=== PATIENT | female | born 1935 | race Caucasian/White ===

== ENCOUNTER 2016-11-07 11:38 | Inpatient (IN) | payer OTHER ==
[~2016-11-07] VITALS: Ht 162.6 cm; Wt 77.0 kg
[~2016-11-07 11:38] MED LIST: LORAZEPAM 1MG TABLETS
[2016-11-07 12:50] LABS: Basophils # (auto) 0 uL; Basophils % (auto) 0.4 % (0.0-2.0); Eosinophils # (auto) 0.1 uL; Eosinophils % (auto) 0.7 % (0.0-7.0); Hematocrit 42.8 % (36.0-46.0); Hemoglobin 13.9 g/dL (12.2-16.2); Lymphocytes # (auto) 1.2 uL; Lymphocytes % (auto) 11.9 % (10.0-50.0); Mean Corpuscular Hemoglobin 27.7 pg (28.0-32.0); Mean Corpuscular Hgb Conc. 32.6 g/dL (32.0-36.0); Mean Platelet Volume 7.1 fL (7.4-10.4); Monocytes # (auto) 0.8 uL; Monocytes % (auto) 7.7 % (0.0-12.0); Neutrophils # (auto) 8.3 uL; Neutrophils % (auto) 79.3 % (37.0-80.0); Platelet Count (auto) 350 10^3/uL (140-450); Red Cell Distribution Width 13.6 % (11.6-16.0); White Blood Cell 10.5 10^3/uL (4.4-10.8)
[2016-11-07 13:12] LABS: Albumin 3.8 g/dL (3.4-5.0); BUN/Creatinine Ratio 20.3; Bilirubin, Total 0.5 mg/dL (0.2-1.0); Calcium 9.2 mg/dL (8.5-10.1); Potassium 3.9 mmol/L (3.5-5.1); Total Protein 7.8 g/dL (6.4-8.2)
[2016-11-07] MEDS ORDERED: VANCOMYCIN 1GM/250ML D5W 250 ML IV ONE (17:00)
[2016-11-07] MEDS ORDERED: LORazepam 2MG/ML-1ML VIAL IV ONE (17:00)
[2016-11-07] MEDS ORDERED: SODIUM CHLORIDE 0.9% 1,000 ML IV ONE (17:00)
[2016-11-07] MEDS ORDERED: KETOROLAC TROMETH 30 MG/ML 1ML VIAL IV ONE (17:00)
[2016-11-07] MEDS ORDERED: PIPERACILLIN-TAZOB 3.375GM 100 ML IV ONE (17:00)
[2016-11-07] MEDS ORDERED: VANCOMYCIN PER PHARMACY 0 MG IV SCH (19:45)
[2016-11-07] MEDS ORDERED: PANTOPRAZOLE SODIUM 40 MG/10 ML VIAL IV ONE (20:15)
[2016-11-07 20:59] VITALS: BP 131/75
[2016-11-07 23:00] VITALS: BP 131/75
[2016-11-07] MEDS: ENOXAPARIN SOD 40 MG/0.4 ML SYRINGE SC SCH (23:04)
[2016-11-07] MEDS: SODIUM CHLORIDE 0.9% 1,000 ML IV SCH (23:04)
[2016-11-08] MEDS ORDERED: PIPERACILLIN-TAZOB 3.375GM 100 ML IV ONE (01:00)
[2016-11-08] MEDS: LORazepam 2MG/ML-1ML VIAL IV PRN ×3 (01:46→23:28)
[2016-11-08] MEDS: SODIUM CHLORIDE 0.9% 1,000 ML IV SCH ×3 (03:35→20:45)
[2016-11-08 05:33] VITALS: BP 124/72
[2016-11-08 06:25] LABS: BUN/Creatinine Ratio 28.8; Calcium 8.2 mg/dL (8.5-10.1); Potassium 3.9 mmol/L (3.5-5.1)
[2016-11-08 06:28] LABS: Bilirubin, Total 0.6 mg/dL (0.2-1.0); Total Protein 6.6 g/dL (6.4-8.2)
[2016-11-08 06:31] LABS: Basophils # (auto) 0 uL; Basophils % (auto) 0.5 % (0.0-2.0); Eosinophils # (auto) 0.2 uL; Eosinophils % (auto) 2.8 % (0.0-7.0); Hematocrit 38.6 % (36.0-46.0); Hemoglobin 12.5 g/dL (12.2-16.2); Lymphocytes # (auto) 1.3 uL; Lymphocytes % (auto) 17.1 % (10.0-50.0); Mean Corpuscular Hemoglobin 27.7 pg (28.0-32.0); Mean Corpuscular Hgb Conc. 32.5 g/dL (32.0-36.0); Mean Corpuscular Volume 85.2 fL (80.0-100.0); Mean Platelet Volume 7.5 fL (7.4-10.4); Monocytes # (auto) 0.8 uL; Monocytes % (auto) 10.9 % (0.0-12.0); Neutrophils # (auto) 5.2 uL; Neutrophils % (auto) 68.7 % (37.0-80.0); Platelet Count (auto) 298 10^3/uL (140-450); Red Cell Distribution Width 13.4 % (11.6-16.0); White Blood Cell 7.6 10^3/uL (4.4-10.8)
[2016-11-08 09:00] VITALS: BP 138/85
[2016-11-08] MEDS: PANTOPRAZOLE SODIUM 40 MG/10 ML VIAL IV SCH (10:45)
[2016-11-08] MEDS ORDERED: cefTRIAXone 1GM/50ML D5W 50 ML IV ONE (12:15)
[2016-11-08] MEDS: THROAT LOZENGES(CEPASTAT) MT PRN ×3 (12:41→20:48)
[2016-11-08 13:00] VITALS: BP 149/72
[2016-11-08] MEDS: PSYLLIUM PWD 6 GM PKG PO SCH ×2 (13:57→21:45)
[2016-11-08] MEDS: KETOROLAC TROMETH 30 MG/ML 1ML VIAL IV PRN (16:52)
[2016-11-08] MEDS: VANCOMYCIN 1GM/250ML D5W 250 ML IV SCH (16:58)
[2016-11-08 17:00] VITALS: BP 138/68
[2016-11-08] MEDS: BOOST PLUS 8 ounce PO SCH (18:00)
[2016-11-08] MEDS: ENOXAPARIN SOD 40 MG/0.4 ML SYRINGE SC SCH (20:45)
[2016-11-08 22:00] VITALS: BP 131/71
[2016-11-09] MEDS: THROAT LOZENGES(CEPASTAT) MT PRN ×2 (04:18)
[2016-11-09] MEDS: SODIUM CHLORIDE 0.9% 1,000 ML IV SCH ×3 (04:19→20:25)
[2016-11-09 05:00] VITALS: BP 151/77
[2016-11-09 05:51] LABS: Basophils # (auto) 0 uL; Basophils % (auto) 0.6 % (0.0-2.0); Eosinophils # (auto) 0.3 uL; Eosinophils % (auto) 4.7 % (0.0-7.0); Hematocrit 35.1 % (36.0-46.0); Hemoglobin 11.6 g/dL (12.2-16.2); Lymphocytes # (auto) 1.3 uL; Lymphocytes % (auto) 19.1 % (10.0-50.0); Mean Corpuscular Hemoglobin 28.1 pg (28.0-32.0); Mean Corpuscular Volume 85.2 fL (80.0-100.0); Mean Platelet Volume 7.2 fL (7.4-10.4); Monocytes # (auto) 0.7 uL; Neutrophils # (auto) 4.3 uL; Neutrophils % (auto) 64.6 % (37.0-80.0); Platelet Count (auto) 271 10^3/uL (140-450); Red Cell Distribution Width 13.3 % (11.6-16.0); White Blood Cell 6.7 10^3/uL (4.4-10.8)
[2016-11-09 06:13] LABS: Potassium 3.9 mmol/L (3.5-5.1)
[2016-11-09 06:20] LABS: Albumin 2.7 g/dL (3.4-5.0); BUN/Creatinine Ratio 27.7; Calcium 7.9 mg/dL (8.5-10.1)
[2016-11-09 06:23] LABS: Bilirubin, Total 0.2 mg/dL (0.2-1.0); Total Protein 5.9 g/dL (6.4-8.2)
[2016-11-09] MEDS: LORazepam 2MG/ML-1ML VIAL IV PRN (06:58)
[2016-11-09] MEDS: cefTRIAXone 1GM/50ML D5W 50 ML IV SCH (08:43)
[2016-11-09] MEDS: BOOST PLUS 8 ounce PO SCH ×3 (08:44→18:00)
[2016-11-09 09:00] VITALS: BP 150/89
[2016-11-09] MEDS: PSYLLIUM PWD 6 GM PKG PO SCH ×2 (10:16→21:59)
[2016-11-09] MEDS: PANTOPRAZOLE SODIUM 40 MG/10 ML VIAL IV SCH (10:16)
[2016-11-09 13:00] VITALS: BP 170/79
[2016-11-09] MEDS: NYSTATIN (MOUTH-THROAT) 500,000 UNITS/5 ML SUSP MT SCH ×2 (15:16→21:59)
[2016-11-09] MEDS: LORazepam 0.5 MG TAB PO PRN ×2 (16:25→23:02)
[2016-11-09] MEDS: VANCOMYCIN 1GM/250ML D5W 250 ML IV SCH (16:53)
[2016-11-09 17:00] VITALS: BP 176/87
[2016-11-09] MEDS: ENOXAPARIN SOD 40 MG/0.4 ML SYRINGE SC SCH (20:24)
[2016-11-09 22:00] VITALS: BP 121/65
[2016-11-09] MEDS: KETOROLAC TROMETH 30 MG/ML 1ML VIAL IV PRN (23:02)
[2016-11-10 02:10] VITALS: BP 167/89
[2016-11-10] MEDS: SODIUM CHLORIDE 0.9% 1,000 ML IV SCH ×3 (05:00→23:58)
[2016-11-10 05:40] VITALS: BP 162/85
[2016-11-10] MEDS: NYSTATIN (MOUTH-THROAT) 500,000 UNITS/5 ML SUSP MT SCH ×4 (05:58→21:16)
[2016-11-10] MEDS: KETOROLAC TROMETH 30 MG/ML 1ML VIAL IV PRN (05:59)
[2016-11-10] MEDS: LORazepam 0.5 MG TAB PO PRN ×2 (05:59→20:03)
[2016-11-10 06:23] LABS: Basophils # (auto) 0 uL; Basophils % (auto) 0.6 % (0.0-2.0); Eosinophils # (auto) 0.2 uL; Eosinophils % (auto) 3.5 % (0.0-7.0); Hematocrit 37.8 % (36.0-46.0); Hemoglobin 12.4 g/dL (12.2-16.2); Lymphocytes # (auto) 1.1 uL; Lymphocytes % (auto) 15.6 % (10.0-50.0); Mean Corpuscular Hemoglobin 27.8 pg (28.0-32.0); Mean Corpuscular Hgb Conc. 32.7 g/dL (32.0-36.0); Mean Corpuscular Volume 85.1 fL (80.0-100.0); Mean Platelet Volume 7.2 fL (7.4-10.4); Monocytes # (auto) 0.8 uL; Monocytes % (auto) 11.4 % (0.0-12.0); Neutrophils # (auto) 4.7 uL; Neutrophils % (auto) 68.9 % (37.0-80.0); Platelet Count (auto) 298 10^3/uL (140-450); Red Cell Distribution Width 13.3 % (11.6-16.0); White Blood Cell 6.9 10^3/uL (4.4-10.8)
[2016-11-10 06:42] LABS: Albumin 2.9 g/dL (3.4-5.0); Bilirubin, Total 0.4 mg/dL (0.2-1.0); Calcium 8.6 mg/dL (8.5-10.1); Potassium 3.7 mmol/L (3.5-5.1); Total Protein 6.5 g/dL (6.4-8.2)
[2016-11-10] MEDS: BOOST PLUS 8 ounce PO SCH ×3 (08:23→17:47)
[2016-11-10] MEDS: cefTRIAXone 1GM/50ML D5W 50 ML IV SCH (09:00)
[2016-11-10 09:12] VITALS: BP 164/85
[2016-11-10] MEDS: PANTOPRAZOLE SODIUM 40 MG/10 ML VIAL IV SCH (10:25)
[2016-11-10] MEDS: PSYLLIUM PWD 6 GM PKG PO SCH ×2 (10:26→21:16)
[2016-11-10 12:00] VITALS: BP 160/91
[2016-11-10 17:03] VITALS: BP 127/70
[2016-11-10] MEDS: VANCOMYCIN 1GM/250ML D5W 250 ML IV SCH (17:46)
[2016-11-10] MEDS: THROAT LOZENGES(CEPASTAT) MT PRN (20:41)
[2016-11-10 21:04] VITALS: BP 146/78
[2016-11-10] MEDS: ENOXAPARIN SOD 40 MG/0.4 ML SYRINGE SC SCH (21:15)
[2016-11-11] MEDS: SODIUM CHLORIDE 0.9% 1,000 ML IV SCH ×2 (03:35→10:28)
[2016-11-11] MEDS: NYSTATIN (MOUTH-THROAT) 500,000 UNITS/5 ML SUSP MT SCH ×4 (05:02→21:37)
[2016-11-11 05:13] VITALS: BP 145/90
[2016-11-11 06:07] LABS: Basophils # (auto) 0 uL; Basophils % (auto) 0.5 % (0.0-2.0); Eosinophils # (auto) 0.3 uL; Eosinophils % (auto) 3.9 % (0.0-7.0); Hemoglobin 12.4 g/dL (12.2-16.2); Lymphocytes # (auto) 1.2 uL; Lymphocytes % (auto) 18.7 % (10.0-50.0); Mean Corpuscular Hemoglobin 28.6 pg (28.0-32.0); Mean Corpuscular Hgb Conc. 33.7 g/dL (32.0-36.0); Monocytes # (auto) 0.8 uL; Monocytes % (auto) 11.7 % (0.0-12.0); Neutrophils # (auto) 4.2 uL; Neutrophils % (auto) 65.2 % (37.0-80.0); Platelet Count (auto) 301 10^3/uL (140-450); Red Cell Distribution Width 12.3 % (11.6-16.0); White Blood Cell 6.5 10^3/uL (4.4-10.8)
[2016-11-11 06:25] LABS: Potassium 3.9 mmol/L (3.5-5.1)
[2016-11-11 06:29] LABS: Albumin 2.7 g/dL (3.4-5.0); BUN/Creatinine Ratio 26.8; Calcium 8.3 mg/dL (8.5-10.1)
[2016-11-11 06:31] LABS: Bilirubin, Total 0.3 mg/dL (0.2-1.0)
[2016-11-11] MEDS: BOOST PLUS 8 ounce PO SCH ×3 (08:00→17:47)
[2016-11-11 09:00] VITALS: BP 150/74
[2016-11-11] MEDS: PANTOPRAZOLE SODIUM 40 MG/10 ML VIAL IV SCH (10:12)
[2016-11-11] MEDS: PSYLLIUM PWD 6 GM PKG PO SCH ×2 (10:12→21:37)
[2016-11-11] MEDS: cefTRIAXone 1GM/50ML D5W 50 ML IV SCH (10:13)
[2016-11-11] MEDS: VANCOMYCIN 1GM/250ML D5W 250 ML IV SCH (11:22)
[2016-11-11] MEDS: LORazepam 0.5 MG TAB PO PRN ×2 (11:23→20:46)
[2016-11-11 13:00] VITALS: BP 155/80
[2016-11-11 17:00] VITALS: BP 142/72
[2016-11-11 20:00] VITALS: BP 129/80
[2016-11-11] MEDS: ENOXAPARIN SOD 40 MG/0.4 ML SYRINGE SC SCH (20:56)
[2016-11-12] MEDS: VANCOMYCIN 1GM/250ML D5W 250 ML IV SCH (05:07)
[2016-11-12] MEDS: LORazepam 0.5 MG TAB PO PRN ×2 (05:07→11:40)
[2016-11-12 05:14] VITALS: BP 136/78
[2016-11-12] MEDS: NYSTATIN (MOUTH-THROAT) 500,000 UNITS/5 ML SUSP MT SCH ×3 (05:25→18:00)
[2016-11-12 06:43] LABS: Basophils # (auto) 0 uL; Basophils % (auto) 0.6 % (0.0-2.0); Eosinophils # (auto) 0.3 uL; Eosinophils % (auto) 3.8 % (0.0-7.0); Hematocrit 37.2 % (36.0-46.0); Hemoglobin 12.3 g/dL (12.2-16.2); Lymphocytes # (auto) 1.3 uL; Lymphocytes % (auto) 18.8 % (10.0-50.0); Mean Corpuscular Hgb Conc. 32.9 g/dL (32.0-36.0); Mean Platelet Volume 7.4 fL (7.4-10.4); Monocytes # (auto) 0.8 uL; Monocytes % (auto) 11.3 % (0.0-12.0); Neutrophils # (auto) 4.4 uL; Neutrophils % (auto) 65.5 % (37.0-80.0); Platelet Count (auto) 325 10^3/uL (140-450); Red Cell Distribution Width 13.3 % (11.6-16.0); White Blood Cell 6.7 10^3/uL (4.4-10.8)
[2016-11-12 07:01] LABS: INR 1.03 (0.9-1.15); Prothrombin Time 10.6 sec (9.37-12.3)
[2016-11-12 07:07] LABS: Potassium 3.7 mmol/L (3.5-5.1)
[2016-11-12 07:18] LABS: Calcium 8.5 mg/dL (8.5-10.1); Magnesium 2.1 mg/dL (1.6-2.6)
[2016-11-12] MEDS: BOOST PLUS 8 ounce PO SCH ×3 (08:00→18:00)
[2016-11-12 09:00] VITALS: BP 127/79
[2016-11-12] MEDS: PSYLLIUM PWD 6 GM PKG PO SCH (09:24)
[2016-11-12] MEDS: cefTRIAXone 1GM/50ML D5W 50 ML IV SCH (09:26)
[2016-11-12] MEDS: PANTOPRAZOLE SODIUM 40 MG/10 ML VIAL IV SCH (09:26)
[2016-11-12 13:00] VITALS: BP 129/74
[2016-11-12 15:00] VITALS: BP 151/73
[2016-11-12 15:29] VITALS: BP 127/79
== END 2016-11-12 19:10 | disposition home health service (06) | DRG 603 ==
LOC: ER 11:43 → OVERFLOW 11:44 → WEST WING 20:35
PROVIDERS: ADMIT Family Medicine; ATTEND Internal Medicine
DX: L03.116 Cellulitis of left lower limb (principal); E44.0 Moderate protein-calorie malnutrition; F20.9 Schizophrenia, unspecified; F41.9 Anxiety disorder, unspecified; Z83.3 Family history of diabetes mellitus; Z88.5 Allergy status to narcotic agent; Z23 Encounter for immunization; Z68.29 Body mass index [BMI] 29.0-29.9, adult
CPT/HCPCS: 36415; 80048; 80053; 80202; 83735; 85025; 85610; 87040; 87081; 93971; 96365; 96366; 96375; 97001; C9113; J0696; J1885; J2543

== ENCOUNTER 2016-11-21 04:11 | Emergency (ER) | payer OTHER ==
[~2016-11-21] VITALS: Ht 167.6 cm; Wt 68.0 kg
[2016-11-21 06:33] LABS: Basophils # (auto) 0 uL; Basophils % (auto) 0.2 % (0.0-2.0); Eosinophils # (auto) 0.1 uL; Eosinophils % (auto) 1.2 % (0.0-7.0); Hematocrit 39.8 % (36.0-46.0); Lymphocytes # (auto) 1.3 uL; Lymphocytes % (auto) 15.8 % (10.0-50.0); Mean Corpuscular Hemoglobin 27.8 pg (28.0-32.0); Mean Corpuscular Hgb Conc. 32.7 g/dL (32.0-36.0); Mean Corpuscular Volume 85.1 fL (80.0-100.0); Monocytes # (auto) 0.7 uL; Monocytes % (auto) 8.8 % (0.0-12.0); Neutrophils # (auto) 6.3 uL; Platelet Count (auto) 399 10^3/uL (140-450); Red Cell Distribution Width 13.3 % (11.6-16.0); White Blood Cell 8.4 10^3/uL (4.4-10.8)
[2016-11-21 06:45] LABS: Albumin 3.3 g/dL (3.4-5.0); BUN/Creatinine Ratio 16.9; Calcium 8.7 mg/dL (8.5-10.1); Potassium 4.5 mmol/L (3.5-5.1)
[2016-11-21] MEDS ORDERED: LORazepam 2MG/ML-1ML VIAL IV ONE ×3 (06:45→12:15)
[2016-11-21 06:48] LABS: Bilirubin, Total 0.7 mg/dL (0.2-1.0)
[2016-11-21 07:55] LABS: Urine Bilirubin Negative (Negative); Urine Blood Negative /uL (Negative); Urine Color Colorless (Yellow); Urine Glucose Normal (Normal); Urine Ketone Negative (Negative); Urine Nitrite Negative (Negative); Urine RBC <1 /hpf (0 - 4); Urine Squamous Epithelial Cell FEW /hpf (<5); Urine Urobilinogen Normal (Negative)
[2016-11-21 13:50] VITALS: BP 146/109
== END 2016-11-21 14:07 | disposition home or self-care (01) ==
LOC: EDBD 04:11 → ER 04:11
DX: F41.9 Anxiety disorder, unspecified (principal); F20.9 Schizophrenia, unspecified; E46 Unspecified protein-calorie malnutrition; Z88.6 Allergy status to analgesic agent
CPT/HCPCS: 36415; 70450; 73562; 80053; 81001; 83735; 84484; 85025; 85049; 93005; 94761; 96374; 96376; 99285; J2060

== ENCOUNTER 2017-02-23 10:05 | Emergency (ER) | payer OTHER ==
[~2017-02-23] VITALS: Ht 157.5 cm; Wt 72.6 kg
[2017-02-23 10:12] VITALS: BP 113/52
[2017-02-23] MEDS ORDERED: ACETAMINOPHEN 325 MG TAB PO ONE (12:15)
== END 2017-02-23 15:22 | disposition home or self-care (01) ==
LOC: EDBD 10:05 → ER 10:07
DX: S22.42XA Multiple fractures of ribs, left side, initial encounter for closed fracture (principal); F41.9 Anxiety disorder, unspecified; F20.9 Schizophrenia, unspecified; W19.XXXA Unspecified fall, initial encounter; Y93.E1 Activity, personal bathing and showering; Y99.8 Other external cause status; Y92.89 Other specified places as the place of occurrence of the external cause; Z88.6 Allergy status to analgesic agent
CPT/HCPCS: 71111

== ENCOUNTER 2017-03-22 20:03 | Inpatient (IN) | payer OTHER ==
[~2017-03-22] VITALS: Ht 160 cm; Wt 68.9 kg
[2017-03-22] MEDS ORDERED: LORazepam 0.5 MG TAB PO ONE (21:15)
[2017-03-22 21:28] LABS: Basophils # (auto) 0 uL; Basophils % (auto) 0.6 % (0.0-2.0); Eosinophils # (auto) 0.1 uL; Eosinophils % (auto) 1.7 % (0.0-7.0); Hematocrit 35.7 % (36.0-46.0); Hemoglobin 12.1 g/dL (12.2-16.2); Lymphocytes # (auto) 1.4 uL; Lymphocytes % (auto) 19.9 % (10.0-50.0); Mean Corpuscular Hemoglobin 28.5 pg (28.0-32.0); Mean Corpuscular Hgb Conc. 33.8 g/dL (32.0-36.0); Mean Corpuscular Volume 84.3 fL (80.0-100.0); Mean Platelet Volume 7.5 fL (7.4-10.4); Monocytes # (auto) 0.7 uL; Neutrophils # (auto) 4.6 uL; Neutrophils % (auto) 67.8 % (37.0-80.0); Platelet Count (auto) 282 10^3/uL (140-450); White Blood Cell 6.8 10^3/uL (4.4-10.8)
[2017-03-22] MEDS ORDERED: LORazepam 2MG/ML-1ML VIAL IV ONE (21:30)
[2017-03-22 21:32] LABS: Urine Bilirubin Negative (Negative); Urine Blood TRACE /uL (Negative); Urine Color Yellow (Yellow); Urine Glucose Normal (Normal); Urine Ketone Negative (Negative); Urine Nitrite Negative (Negative); Urine RBC 4 /hpf (0 - 4); Urine Squamous Epithelial Cell FEW /hpf (<5); Urine Urobilinogen Normal (Negative); Urine pH 5.5 (5.0-8.0)
[2017-03-22 21:49] LABS: Albumin 3.4 g/dL (3.4-5.0); Calcium 8.4 mg/dL (8.5-10.1); Potassium 3.8 mmol/L (3.5-5.1)
[2017-03-22 21:52] LABS: Bilirubin, Total 0.3 mg/dL (0.2-1.0); Total Protein 6.5 g/dL (6.4-8.2)
[2017-03-22] MEDS ORDERED: LEVOFLOXACIN 500 MG TAB PO ONE (23:45)
[2017-03-23] VITALS (7 sets, daily range): BP systolic 133–144; BP diastolic 53–77
[2017-03-23] MEDS ORDERED: ONDANSETRON HCL 4 MG/2 ML VIAL IV PRN (00:45)
[2017-03-23] MEDS ORDERED: SODIUM CHLORIDE 0.9% 500 ML IV ONE (00:45)
[2017-03-23] MEDS: LORazepam 0.5 MG TAB PO PRN ×2 (04:57→16:12)
[2017-03-23] MEDS ORDERED: LEVOFLOXACIN 500MG 100 ML IV SCH (10:00)
[2017-03-23] MEDS: ENOXAPARIN SOD 40 MG/0.4 ML SYRINGE SC SCH (10:00)
[2017-03-23] MEDS: FAMOTIDINE 20 MG TAB PO SCH ×2 (10:08→21:54)
[2017-03-23] MEDS: cefTRIAXone 1GM/50ML D5W 50 ML IV SCH (12:22)
[2017-03-23] MEDS: TEMAZEPAM 15 MG CAP PO PRN (21:54)
[2017-03-24] MEDS: LORazepam 0.5 MG TAB PO PRN ×3 (01:52→22:17)
[2017-03-24] MEDS: cefTRIAXone 1GM/50ML D5W 50 ML IV SCH (09:11)
[2017-03-24] MEDS: FAMOTIDINE 20 MG TAB PO SCH ×2 (09:12→22:16)
[2017-03-24] MEDS: ENOXAPARIN SOD 40 MG/0.4 ML SYRINGE SC SCH (09:14)
[2017-03-24 09:56] LABS: Vitamin B12 417 pg/mL (211-911)
[2017-03-24 10:01] LABS: Temperature: 22.9 C (20.0-25.0)
[2017-03-24 21:30] VITALS: BP 113/60
[2017-03-24] MEDS: TEMAZEPAM 15 MG CAP PO PRN (22:17)
[2017-03-25] MEDS: LORazepam 0.5 MG TAB PO PRN ×3 (06:40→23:38)
[2017-03-25] MEDS: ACETAMINOPHEN 325 MG TAB PO PRN ×2 (06:40→22:36)
[2017-03-25 09:00] VITALS: BP 118/67
[2017-03-25] MEDS: cefTRIAXone 1GM/50ML D5W 50 ML IV SCH (09:40)
[2017-03-25] MEDS: FAMOTIDINE 20 MG TAB PO SCH ×2 (09:40→21:43)
[2017-03-25] MEDS: ENOXAPARIN SOD 40 MG/0.4 ML SYRINGE SC SCH (09:46)
[2017-03-25 13:00] VITALS: BP 134/72
[2017-03-25 17:00] VITALS: BP 133/74
[2017-03-25 22:00] VITALS: BP 121/63
[2017-03-25] MEDS: TEMAZEPAM 15 MG CAP PO PRN (23:38)
[2017-03-26 04:49] VITALS: BP 110/63
[2017-03-26 08:53] VITALS: BP 87/53
[2017-03-26] MEDS: cefTRIAXone 1GM/50ML D5W 50 ML IV SCH (09:57)
[2017-03-26] MEDS: ENOXAPARIN SOD 40 MG/0.4 ML SYRINGE SC SCH (10:00)
[2017-03-26] MEDS: FAMOTIDINE 20 MG TAB PO SCH ×2 (10:00→21:29)
[2017-03-26 14:29] VITALS: BP 105/62
[2017-03-26 18:06] VITALS: BP 128/70
[2017-03-26] MEDS: LORazepam 0.5 MG TAB PO PRN (21:29)
[2017-03-26 22:14] VITALS: BP 104/59
[2017-03-27] MEDS: ACETAMINOPHEN 325 MG TAB PO PRN (02:54)
[2017-03-27 05:49] VITALS: BP 124/71
[2017-03-27] MEDS: LORazepam 0.5 MG TAB PO PRN ×2 (06:01→15:22)
[2017-03-27] MEDS: cefTRIAXone 1GM/50ML D5W 50 ML IV SCH (10:31)
[2017-03-27] MEDS: ENOXAPARIN SOD 40 MG/0.4 ML SYRINGE SC SCH (10:31)
[2017-03-27] MEDS: FAMOTIDINE 20 MG TAB PO SCH (10:32)
== END 2017-03-27 16:00 | DRG 57 ==
LOC: EDBD 20:03 → ER 20:07 → OVERFLOW 20:08 → WEST WING 03-23 01:29
PROVIDERS: ADMIT Nurse Practitioner; ATTEND Internal Medicine Pulmonary Disease
DX: G30.9 Alzheimer's disease, unspecified (principal); N39.0 Urinary tract infection, site not specified; F20.9 Schizophrenia, unspecified; F02.80 Dementia in other diseases classified elsewhere, unspecified severity, without behavioral disturbance, psychotic disturbance, mood disturbance, and anxiety; E86.0 Dehydration; I10 Essential (primary) hypertension; M85.80 Other specified disorders of bone density and structure, unspecified site; F41.9 Anxiety disorder, unspecified; R45.1 Restlessness and agitation; R26.9 Unspecified abnormalities of gait and mobility; Z83.3 Family history of diabetes mellitus; Z88.5 Allergy status to narcotic agent; Z81.1 Family history of alcohol abuse and dependence; Z80.9 Family history of malignant neoplasm, unspecified
CPT/HCPCS: 36415; 80053; 81001; 82607; 82746; 84439; 84443; 85025; 87086; 96374; 97001; J0696; J1956

== ENCOUNTER 2018-03-11 11:23 | Inpatient (IN) | payer MEDICARE, MEDICAID ==
[~2018-03-11] VITALS: Ht 160 cm; Wt 75.2 kg
[2018-03-11] MEDS ORDERED: LORazepam 0.5 MG TAB PO ONE (11:30)
[2018-03-11 12:45] LABS: Basophils # (auto) 0.1 uL; Basophils % (auto) 0.8 % (0.0-2.0); Eosinophils # (auto) 0.2 uL; Eosinophils % (auto) 2.4 % (0.0-7.0); Hematocrit 39.9 % (36.0-46.0); Hemoglobin 13.1 g/dL (12.2-16.2); Lymphocytes # (auto) 1.1 uL; Lymphocytes % (auto) 15.3 % (10.0-50.0); Mean Corpuscular Hemoglobin 27.9 pg (28.0-32.0); Mean Corpuscular Hgb Conc. 32.9 g/dL (32.0-36.0); Monocytes # (auto) 0.6 uL; Monocytes % (auto) 8.2 % (0.0-12.0); Neutrophils % (auto) 73.3 % (37.0-80.0); Platelet Count (auto) 327 10^3/uL (140-450); Red Cell Distribution Width 14.5 % (11.8-14.3); White Blood Cell 6.9 10^3/uL (4.4-10.8)
[2018-03-11 13:14] LABS: Anion Gap 8 (5-15); Blood Urea Nitrogen 14 mg/dL (7-18); Carbon Dioxide 24 mmol/L (21-32); Chloride 103 mmol/L (98-107); Glucose 215 mg/dL (74-106); Potassium 4.1 mmol/L (3.5-5.1); Sodium 135 mmol/L (136-145)
[2018-03-11 13:15] LABS: Blood Alcohol < 3.0 mg/dL (0-5); Calcium 8.5 mg/dL (8.5-10.1); GFR African American 103 mL/min; GFR Non-African American 85 mL/min
[2018-03-11 14:32] LABS: Urine Bacteria FEW /hpf (None Seen); Urine Blood Negative /uL (Negative); Urine Specific Gravity 1.009 (1.001-1.035); Urine WBC 1 /hpf (0 - 5)
[2018-03-11] MEDS ORDERED: HALOPERIDOL LACTATE 5 MG/ML INJ VIAL IM ONE (15:30)
[2018-03-11] MEDS ORDERED: diphenhdrAMINE HCL 50 MG/1 ML VL IM ONE (15:30)
[2018-03-11] MEDS ORDERED: LORazepam 2MG/ML-1ML VIAL IM ONE (15:30)
[2018-03-11 17:18] LABS: Alcohol, Urine < 3.0 mg/dL (0-5); Amphetamine Screen, Urine NEGATIVE (NEGATIVE); Barbiturate Scree,Urine NEGATIVE (NEGATIVE); Benzodiazephine Screen, Urine NEGATIVE (NEGATIVE); Cannabinoid Screen, Urine NEGATIVE (NEGATIVE); Cocaine Screen, Urine NEGATIVE (NEGATIVE); Opiate Scree,Urine NEGATIVE (NEGATIVE); Phencyclidine Screen, Urine NEGATIVE (NEGATIVE)
[2018-03-11] MEDS ORDERED: NITROGLYCERIN 0.4 MG SL TAB SL PRN (18:45)
[2018-03-11] MEDS ORDERED: MORPHINE SULFATE 8mg/ml INJ SDV IV PRN ×3 (18:45→19:15)
[2018-03-11] MEDS ORDERED: LACTULOSE 20Gm/30ML SOLN PO PRN (18:45)
[2018-03-11] MEDS ORDERED: PROMETHAZINE HCL 25 MG/ML 1ML IV PRN (18:45)
[2018-03-11] MEDS ORDERED: cefTRIAXone 1GM/10ml IVPUSH 10 ML IV ONE (18:45)
[2018-03-11] MEDS ORDERED: ACETAMINOPHEN 500 MG TAB PO PRN (18:45)
[2018-03-11] MEDS ORDERED: DEXTROSE (50%) 50ML SYRG IV PRN (18:45)
[2018-03-11 19:55] LABS: Folate (Folic Acid) 9.53 ng/mL (5.38-24)
[2018-03-11] MEDS: SODIUM CHLORIDE 0.9% 1,000 ML IV SCH (19:59)
[2018-03-11] MEDS ORDERED: AZITHROMYCIN 500MG/ 250ML 250 ML IV ONE (20:00)
[2018-03-11] MEDS: InsuLIN REG 1unit/0.01ml Soln (100units/ml) SC SCH (22:27)
[2018-03-11] MEDS: ACCU-CHEK COMFORT CURVE STRIP VI SCH (22:27)
[2018-03-12] MEDS: InsuLIN REG 1unit/0.01ml Soln (100units/ml) SC SCH ×4 (07:00→22:39)
[2018-03-12] MEDS: SODIUM CHLORIDE 0.9% 1,000 ML IV SCH ×2 (07:05→22:59)
[2018-03-12] MEDS: ACCU-CHEK COMFORT CURVE STRIP VI SCH ×4 (09:23→22:00)
[2018-03-12] MEDS: cefTRIAXone 1GM/10ml IVPUSH 10 ML IV SCH (09:23)
[2018-03-12] MEDS: AZITHROMYCIN 500MG/ 250ML 250 ML IV SCH (10:27)
[2018-03-12] MEDS: ENOXAPARIN SOD 40 MG/0.4 ML SYRINGE SC SCH (10:27)
[2018-03-12] MEDS: CITALOPRAM HYDROBR 20 MG TAB PO SCH (12:38)
[2018-03-12] MEDS: LORazepam 0.5 MG TAB PO PRN (14:25)
[2018-03-12 20:00] VITALS: BP 146/65
[2018-03-12 21:30] VITALS: BP 146/65
[2018-03-13] MEDS: LORazepam 0.5 MG TAB PO PRN ×2 (00:57→10:05)
[2018-03-13 05:00] VITALS: BP 122/64
[2018-03-13] MEDS: InsuLIN REG 1unit/0.01ml Soln (100units/ml) SC SCH ×4 (07:00→21:21)
[2018-03-13] MEDS: ACCU-CHEK COMFORT CURVE STRIP VI SCH ×4 (07:00→21:21)
[2018-03-13 09:00] VITALS: BP 120/71
[2018-03-13] MEDS: CITALOPRAM HYDROBR 20 MG TAB PO SCH (10:06)
[2018-03-13] MEDS: cefTRIAXone 1GM/10ml IVPUSH 10 ML IV SCH (11:27)
[2018-03-13] MEDS: AZITHROMYCIN 500MG/ 250ML 250 ML IV SCH (11:27)
[2018-03-13] MEDS: ENOXAPARIN SOD 40 MG/0.4 ML SYRINGE SC SCH (11:28)
[2018-03-13] MEDS: SODIUM CHLORIDE 0.9% 1,000 ML IV SCH (11:30)
[2018-03-13 13:00] VITALS: BP 96/52
[2018-03-13 17:30] VITALS: BP 121/61
[2018-03-13] MEDS: TEMAZEPAM 15 MG CAP PO PRN (21:20)
[2018-03-13] MEDS: HYDROcodone-ACET 5/325MG TAB PO PRN (21:21)
[2018-03-13 21:45] VITALS: BP 134/72
[2018-03-13] MEDS: GEODON 20 MG PO SCH (22:00)
[2018-03-14] MEDS: SODIUM CHLORIDE 0.9% 1,000 ML IV SCH ×3 (00:23→21:24)
[2018-03-14 05:00] VITALS: BP 145/73
[2018-03-14] MEDS: InsuLIN REG 1unit/0.01ml Soln (100units/ml) SC SCH ×4 (07:00→21:24)
[2018-03-14] MEDS: ACCU-CHEK COMFORT CURVE STRIP VI SCH ×4 (07:03→21:31)
[2018-03-14 09:00] VITALS: BP 125/68
[2018-03-14] MEDS: CITALOPRAM HYDROBR 20 MG TAB PO SCH (09:12)
[2018-03-14] MEDS: AZITHROMYCIN 500MG/ 250ML 250 ML IV SCH (09:13)
[2018-03-14] MEDS: cefTRIAXone 1GM/10ml IVPUSH 10 ML IV SCH (09:13)
[2018-03-14] MEDS: GEODON 20 MG PO SCH ×2 (09:14→21:30)
[2018-03-14] MEDS: ENOXAPARIN SOD 40 MG/0.4 ML SYRINGE SC SCH (09:14)
[2018-03-14] MEDS: HYDROcodone-ACET 5/325MG TAB PO PRN ×2 (11:02→18:30)
[2018-03-14 13:00] VITALS: BP 146/77
[2018-03-14 17:00] VITALS: BP 151/74
[2018-03-14] MEDS: TEMAZEPAM 15 MG CAP PO PRN (21:24)
[2018-03-14 21:53] VITALS: BP 125/73
[2018-03-15 05:30] VITALS: BP 127/75
[2018-03-15] MEDS: ACCU-CHEK COMFORT CURVE STRIP VI SCH ×4 (06:54→21:47)
[2018-03-15] MEDS: InsuLIN REG 1unit/0.01ml Soln (100units/ml) SC SCH ×4 (06:54→21:47)
[2018-03-15 09:00] VITALS: BP 118/66
[2018-03-15] MEDS: cefTRIAXone 1GM/10ml IVPUSH 10 ML IV SCH (09:38)
[2018-03-15] MEDS: AZITHROMYCIN 500MG/ 250ML 250 ML IV SCH (09:38)
[2018-03-15] MEDS: CITALOPRAM HYDROBR 20 MG TAB PO SCH (09:39)
[2018-03-15] MEDS: ENOXAPARIN SOD 40 MG/0.4 ML SYRINGE SC SCH (09:39)
[2018-03-15] MEDS: GEODON 20 MG PO SCH ×2 (10:00→21:29)
[2018-03-15] MEDS: SODIUM CHLORIDE 0.9% 1,000 ML IV SCH ×2 (10:05→21:48)
[2018-03-15] MEDS: HYDROcodone-ACET 5/325MG TAB PO PRN (11:09)
[2018-03-15 12:51] VITALS: BP 141/54
[2018-03-15] MEDS: TEMAZEPAM 15 MG CAP PO PRN (21:29)
[2018-03-15 22:00] VITALS: BP 127/72
[2018-03-16] MEDS: HYDROcodone-ACET 5/325MG TAB PO PRN (06:17)
[2018-03-16 06:25] VITALS: BP 99/54
[2018-03-16] MEDS: ACCU-CHEK COMFORT CURVE STRIP VI SCH ×4 (06:50→21:48)
[2018-03-16] MEDS: InsuLIN REG 1unit/0.01ml Soln (100units/ml) SC SCH ×4 (06:50→21:48)
[2018-03-16 07:16] LABS: Basophils # (auto) 0.1 uL; Basophils % (auto) 1.2 % (0.0-2.0); Eosinophils # (auto) 0.3 uL; Eosinophils % (auto) 6.6 % (0.0-7.0); Hematocrit 36.2 % (36.0-46.0); Hemoglobin 12.3 g/dL (12.2-16.2); Lymphocytes # (auto) 1.1 uL; Lymphocytes % (auto) 20.1 % (10.0-50.0); Mean Corpuscular Hemoglobin 28.8 pg (28.0-32.0); Mean Corpuscular Hgb Conc. 33.9 g/dL (32.0-36.0); Mean Corpuscular Volume 85.1 fL (80.0-100.0); Monocytes # (auto) 0.6 uL; Monocytes % (auto) 12.3 % (0.0-12.0); Neutrophils # (auto) 3.2 uL; Neutrophils % (auto) 59.8 % (37.0-80.0); Nucleated Red Blood Cells % 0.1 %; Platelet Count (auto) 284 10^3/uL (140-450); Red Blood Cells 4.26 10^6/uL (4.0-5.20); Red Cell Distribution Width 14.4 % (11.8-14.3); White Blood Cell 5.3 10^3/uL (4.4-10.8)
[2018-03-16 07:21] LABS: BUN/Creatinine Ratio 36.6; Calcium 8.5 mg/dL (8.5-10.1); Potassium 4.3 mmol/L (3.5-5.1)
[2018-03-16 08:55] VITALS: BP 122/67
[2018-03-16] MEDS: cefTRIAXone 1GM/10ml IVPUSH 10 ML IV SCH (09:09)
[2018-03-16] MEDS: CITALOPRAM HYDROBR 20 MG TAB PO SCH (09:09)
[2018-03-16] MEDS: AZITHROMYCIN 250 MG TAB PO SCH (09:09)
[2018-03-16] MEDS: GEODON 20 MG PO SCH ×2 (09:09→21:35)
[2018-03-16] MEDS: ENOXAPARIN SOD 40 MG/0.4 ML SYRINGE SC SCH (09:10)
[2018-03-16] MEDS: SODIUM CHLORIDE 0.9% 1,000 ML IV SCH ×2 (11:54→23:35)
[2018-03-16 12:12] VITALS: BP 120/66
[2018-03-16 16:21] VITALS: BP 124/70
[2018-03-16] MEDS: TEMAZEPAM 15 MG CAP PO PRN (21:35)
[2018-03-17] MEDS: ACCU-CHEK COMFORT CURVE STRIP VI SCH ×4 (06:44→21:35)
[2018-03-17] MEDS: InsuLIN REG 1unit/0.01ml Soln (100units/ml) SC SCH ×4 (06:44→21:35)
[2018-03-17 08:00] VITALS: BP 115/66
[2018-03-17 08:35] VITALS: BP 115/66
[2018-03-17] MEDS: CITALOPRAM HYDROBR 20 MG TAB PO SCH (09:56)
[2018-03-17] MEDS: GEODON 20 MG PO SCH ×2 (09:57→21:35)
[2018-03-17] MEDS: AZITHROMYCIN 250 MG TAB PO SCH (09:57)
[2018-03-17] MEDS: cefTRIAXone 1GM/10ml IVPUSH 10 ML IV SCH (09:57)
[2018-03-17] MEDS: ENOXAPARIN SOD 40 MG/0.4 ML SYRINGE SC SCH (09:57)
[2018-03-17] MEDS: SODIUM CHLORIDE 0.9% 1,000 ML IV SCH (12:05)
[2018-03-17 13:00] VITALS: BP 125/80
[2018-03-17 17:00] VITALS: BP 152/89
[2018-03-17 20:00] VITALS: BP 138/61
[2018-03-17] MEDS ORDERED: SODIUM BICARBONATE 8.4% INJ 50ML SYRINGE ONE (20:44)
[2018-03-17 21:57] VITALS: BP 138/61
[2018-03-17] MEDS: TEMAZEPAM 15 MG CAP PO PRN (22:49)
[2018-03-18 05:10] VITALS: BP 135/60
[2018-03-18] MEDS: InsuLIN REG 1unit/0.01ml Soln (100units/ml) SC SCH ×3 (06:50→17:43)
[2018-03-18] MEDS: ACCU-CHEK COMFORT CURVE STRIP VI SCH ×3 (06:51→17:00)
[2018-03-18 09:00] VITALS: BP 132/69
[2018-03-18] MEDS: cefTRIAXone 1GM/10ml IVPUSH 10 ML IV SCH (10:41)
[2018-03-18] MEDS: ENOXAPARIN SOD 40 MG/0.4 ML SYRINGE SC SCH (10:41)
[2018-03-18] MEDS: AZITHROMYCIN 250 MG TAB PO SCH (10:42)
[2018-03-18] MEDS: CITALOPRAM HYDROBR 20 MG TAB PO SCH (10:42)
[2018-03-18] MEDS: GEODON 20 MG PO SCH ×2 (10:42→21:52)
[2018-03-18 13:00] VITALS: BP 129/72
[2018-03-18] MEDS: SODIUM CHLORIDE 0.9% 1,000 ML IV SCH ×2 (13:05)
[2018-03-18 17:00] VITALS: BP 153/78
[2018-03-18] MEDS: TEMAZEPAM 15 MG CAP PO PRN (21:51)
[2018-03-18] MEDS: LORazepam 0.5 MG TAB PO PRN (21:51)
[2018-03-18 22:50] VITALS: BP 128/74
[2018-03-19] MEDS: InsuLIN REG 1unit/0.01ml Soln (100units/ml) SC SCH ×5 (02:52→22:00)
[2018-03-19] MEDS: ACCU-CHEK COMFORT CURVE STRIP VI SCH ×5 (02:52→23:00)
[2018-03-19 05:17] VITALS: BP 102/61
[2018-03-19] MEDS: SODIUM CHLORIDE 0.9% 1,000 ML IV SCH ×2 (05:54→11:44)
[2018-03-19] MEDS: LORazepam 0.5 MG TAB PO PRN ×2 (07:01→21:40)
[2018-03-19 08:27] VITALS: BP 124/62
[2018-03-19] MEDS: GEODON 20 MG PO SCH ×2 (10:00→22:00)
[2018-03-19] MEDS: cefTRIAXone 1GM/10ml IVPUSH 10 ML IV SCH (10:08)
[2018-03-19] MEDS: CITALOPRAM HYDROBR 20 MG TAB PO SCH (10:10)
[2018-03-19] MEDS: AZITHROMYCIN 250 MG TAB PO SCH (10:11)
[2018-03-19] MEDS: ENOXAPARIN SOD 40 MG/0.4 ML SYRINGE SC SCH (10:12)
[2018-03-19 10:58] VITALS: BP 117/73
[2018-03-19 16:32] VITALS: BP 140/79
[2018-03-19] MEDS: TEMAZEPAM 15 MG CAP PO PRN (21:39)
[2018-03-19 22:00] VITALS: BP 150/82
[2018-03-20 04:56] VITALS: BP 144/63
[2018-03-20] MEDS: InsuLIN REG 1unit/0.01ml Soln (100units/ml) SC SCH ×4 (07:00→21:21)
[2018-03-20] MEDS: SODIUM CHLORIDE 0.9% 1,000 ML IV SCH ×2 (08:21→15:05)
[2018-03-20] MEDS: ACCU-CHEK COMFORT CURVE STRIP VI SCH ×4 (08:22→21:20)
[2018-03-20] MEDS: LORazepam 0.5 MG TAB PO PRN ×2 (08:42→16:19)
[2018-03-20 09:04] VITALS: BP 125/68
[2018-03-20] MEDS: GEODON 20 MG PO SCH ×2 (10:00→21:19)
[2018-03-20] MEDS: AZITHROMYCIN 250 MG TAB PO SCH (10:59)
[2018-03-20] MEDS: cefTRIAXone 1GM/10ml IVPUSH 10 ML IV SCH (10:59)
[2018-03-20] MEDS: ENOXAPARIN SOD 40 MG/0.4 ML SYRINGE SC SCH (11:00)
[2018-03-20] MEDS: CITALOPRAM HYDROBR 20 MG TAB PO SCH (11:00)
[2018-03-20 12:38] VITALS: BP 130/72
[2018-03-20 16:48] VITALS: BP 127/66
[2018-03-20 22:00] VITALS: BP 126/73
[2018-03-20] MEDS: TEMAZEPAM 15 MG CAP PO PRN (22:16)
[2018-03-21 05:00] VITALS: BP 157/89
[2018-03-21] MEDS: SODIUM CHLORIDE 0.9% 1,000 ML IV SCH ×2 (05:29→16:05)
[2018-03-21] MEDS: ACCU-CHEK COMFORT CURVE STRIP VI SCH ×4 (05:30→21:19)
[2018-03-21] MEDS: InsuLIN REG 1unit/0.01ml Soln (100units/ml) SC SCH ×4 (05:30→21:25)
[2018-03-21] MEDS: HYDROcodone-ACET 5/325MG TAB PO PRN ×2 (05:42→17:49)
[2018-03-21 07:10] LABS: Basophils # (auto) 0.1 uL; Eosinophils # (auto) 0.3 uL; Eosinophils % (auto) 5.6 % (0.0-7.0); Hematocrit 38.3 % (36.0-46.0); Hemoglobin 12.7 g/dL (12.2-16.2); Lymphocytes # (auto) 1.2 uL; Lymphocytes % (auto) 20.1 % (10.0-50.0); Mean Corpuscular Hemoglobin 28.1 pg (28.0-32.0); Mean Corpuscular Hgb Conc. 33.2 g/dL (32.0-36.0); Mean Corpuscular Volume 84.8 fL (80.0-100.0); Monocytes # (auto) 0.6 uL; Monocytes % (auto) 10.7 % (0.0-12.0); Neutrophils # (auto) 3.7 uL; Neutrophils % (auto) 62.6 % (37.0-80.0); Nucleated Red Blood Cells % 0.1 %; Platelet Count (auto) 291 10^3/uL (140-450); Red Blood Cells 4.52 10^6/uL (4.0-5.20); Red Cell Distribution Width 14.4 % (11.8-14.3)
[2018-03-21 07:38] LABS: Calcium 8.8 mg/dL (8.5-10.1); Potassium 4.3 mmol/L (3.5-5.1)
[2018-03-21 08:50] VITALS: BP 115/62
[2018-03-21] MEDS: cefTRIAXone 1GM/10ml IVPUSH 10 ML IV SCH (09:00)
[2018-03-21] MEDS: LORazepam 0.5 MG TAB PO PRN ×2 (09:01→18:45)
[2018-03-21] MEDS: ENOXAPARIN SOD 40 MG/0.4 ML SYRINGE SC SCH (09:01)
[2018-03-21] MEDS: CITALOPRAM HYDROBR 20 MG TAB PO SCH (09:01)
[2018-03-21] MEDS: AZITHROMYCIN 250 MG TAB PO SCH (09:01)
[2018-03-21] MEDS: GEODON 20 MG PO SCH ×2 (10:00→21:25)
[2018-03-21 12:50] VITALS: BP 125/70
[2018-03-21 16:50] VITALS: BP 138/85
[2018-03-21 22:00] VITALS: BP 135/70
[2018-03-22] MEDS: SODIUM CHLORIDE 0.9% 1,000 ML IV SCH ×2 (04:35→17:05)
[2018-03-22 05:00] VITALS: BP 130/60
[2018-03-22] MEDS: ACCU-CHEK COMFORT CURVE STRIP VI SCH ×4 (06:12→21:10)
[2018-03-22] MEDS: InsuLIN REG 1unit/0.01ml Soln (100units/ml) SC SCH ×4 (06:13→21:13)
[2018-03-22] MEDS: LORazepam 0.5 MG TAB PO PRN ×2 (06:27→09:04)
[2018-03-22] MEDS: CITALOPRAM HYDROBR 20 MG TAB PO SCH (09:04)
[2018-03-22] MEDS: ENOXAPARIN SOD 40 MG/0.4 ML SYRINGE SC SCH (09:04)
[2018-03-22] MEDS: GEODON 20 MG PO SCH ×2 (09:05→21:10)
[2018-03-22 09:27] VITALS: BP 141/78
[2018-03-22 12:30] VITALS: BP 129/70
[2018-03-22 17:13] VITALS: BP 163/82
[2018-03-22] MEDS: TEMAZEPAM 15 MG CAP PO PRN (21:13)
[2018-03-22 22:00] VITALS: BP 108/69
[2018-03-23] MEDS: LORazepam 0.5 MG TAB PO PRN ×3 (01:36→16:56)
[2018-03-23 05:00] VITALS: BP 135/70
[2018-03-23] MEDS: SODIUM CHLORIDE 0.9% 1,000 ML IV SCH ×2 (05:49→18:05)
[2018-03-23] MEDS: ACCU-CHEK COMFORT CURVE STRIP VI SCH ×4 (07:00→21:21)
[2018-03-23] MEDS: InsuLIN REG 1unit/0.01ml Soln (100units/ml) SC SCH ×4 (07:00→21:21)
[2018-03-23 09:00] VITALS: BP 116/55
[2018-03-23] MEDS: GEODON 20 MG PO SCH ×2 (10:00→21:20)
[2018-03-23] MEDS: ENOXAPARIN SOD 40 MG/0.4 ML SYRINGE SC SCH (11:01)
[2018-03-23] MEDS: CITALOPRAM HYDROBR 20 MG TAB PO SCH (11:01)
[2018-03-23] MEDS: HYDROcodone-ACET 5/325MG TAB PO PRN (12:53)
[2018-03-23 13:00] VITALS: BP 121/59
[2018-03-23 17:00] VITALS: BP 118/64
[2018-03-23] MEDS: TEMAZEPAM 15 MG CAP PO PRN (21:26)
[2018-03-24 05:55] VITALS: BP 118/64
[2018-03-24] MEDS: SODIUM CHLORIDE 0.9% 1,000 ML IV SCH (05:56)
[2018-03-24] MEDS: ACCU-CHEK COMFORT CURVE STRIP VI SCH ×3 (06:26→17:00)
[2018-03-24] MEDS: InsuLIN REG 1unit/0.01ml Soln (100units/ml) SC SCH ×3 (06:26→17:00)
[2018-03-24 08:00] VITALS: BP 114/45
[2018-03-24 09:00] VITALS: BP 114/45
[2018-03-24] MEDS: GEODON 20 MG PO SCH (10:00)
[2018-03-24] MEDS: ENOXAPARIN SOD 40 MG/0.4 ML SYRINGE SC SCH (10:20)
[2018-03-24] MEDS: CITALOPRAM HYDROBR 20 MG TAB PO SCH (10:23)
[2018-03-24 13:00] VITALS: BP 117/47
[2018-03-24 16:54] VITALS: BP 136/57
[2018-03-25 08:39] LABS: Hepatitis B Surface Antibody Negative
[2018-03-25 13:39] LABS: Hepatitis B Surface Antigen Negative (Negative)
== END 2018-03-24 18:13 | DRG 689 ==
LOC: EDBD 11:23 → ER 11:23 → TELE 03-12 11:24 → TELE-WESTW 03-12 17:59
PROVIDERS: ADMIT Internal Medicine; ATTEND Family Medicine
DX: N39.0 Urinary tract infection, site not specified (principal); J18.9 Pneumonia, unspecified organism; R45.851 Suicidal ideations; F20.9 Schizophrenia, unspecified; F32.9 Major depressive disorder, single episode, unspecified; F41.9 Anxiety disorder, unspecified
CPT/HCPCS: 36415; 70450; 71045; 74176; 80048; 80307; 80320; 81001; 82607; 82746; 82962; 83036; 84443; 85025; 85652; 86703; 86706; 86803; 87086; 87340; 93971; 96361; 96365; 96366; 96372; 96375; J1815